=== PATIENT | male | born 1955 | race Hispanic/Latino ===

== ENCOUNTER 2018-12-18 05:39 | Observation (INO) | payer OTHER ==
[2018-12-15 10:57] VITALS: BP 130/67
[2018-12-15 11:20] LABS: BASOPHILS % (AUTO) 0.8 % (0.0-5.0); EOSINOPHILS % (AUTO) 3.2 % (0.0-8.0); HEMATOCRIT 42.4 % (42-54); LYMPHOCYTES % (AUTO) 45.2 % (21.0-51.0); MEAN CORPUSCULAR HEMOGLOBIN 30.6 pg (27.0-33.0); MEAN CORPUSCULAR HGB CONC 34.1 g/dL (32.0-36.0); MEAN CORPUSCULAR VOLUME 89.8 fL (79-99); MONOCYTES % (AUTO) 8.8 % (3.0-13.0); NUCLEATED RED BLOOD CELLS 0.1 % (0.0-0.19); PLATELET COUNT (AUTO) 292 K/uL (130-400); RED BLOOD CELL COUNT(AUTO) 4.72 MIL/uL (4.50-6.20); RED CELL DISTRIBUTION WIDTH 14.1 % (11.0-15.5); WHITE BLOOD COUNT (AUTO) 8.7 K/uL (4.8-10.8)
[2018-12-15 11:27] LABS: CREATININE 0.9 mg/dL (0.5-1.5); POTASSIUM 4.5 mmol/L (3.5-5.1)
[2018-12-15 11:53] LABS: INR 0.93 (0.85-1.15); PARTIAL THROMBOPLASTIN TIME 28.9 SEC (26.3-35.5); PROTHROMBIN TIME 9.8 SEC (9.6-11.6)
[2018-12-15 12:08] LABS: APPEARANCE,URINE CLEAR (CLEAR); BILIRUBIN,URINE NEGATIVE (NEGATIVE); COLOR,URINE YELLOW (YELLOW); GLUCOSE, URINE (UA) NEGATIVE (NEGATIVE); KETONES,URINE NEGATIVE (NEGATIVE); LEUKOCYTE ESTERASE ,URINE NEGATIVE (NEGATIVE); NITRATE,URINE NEGATIVE (NEGATIVE); OCCULT BLOOD,URINE SMALL (NEGATIVE); PROTEIN,URINE NEGATIVE (NEGATIVE); UROBILINOGEN,URINE 0.2 mg/dL (0.2-1.0)
[2018-12-15 12:33] LABS: BACTERIA,URINE Rare /HPF (None Seen); RBC,URINE 0-1 /HPF (0-1); SQUAMOUS EPITHELIAL CELL,UR Rare /HPF (0-2); WBC,URINE None Seen /HPF (0-1)
[~2018-12-18] VITALS: Ht 165.1 cm; Wt 73.9 kg
[2018-12-18] VITALS (14 sets, daily range): BP systolic 114–148; BP diastolic 57–85
[~2018-12-18 05:39] MED LIST: ASPI-555 PO; CLOP75TA32 PO; FINA5TAB41 PO; ISOS30TA6 PO; METO25TA6 PO; NITR0.4T50 SL
[2018-12-18] MEDS ORDERED: SODIUM CHLORIDE 0.9% 1000ML 1,000 ML IV ONE (07:16)
[2018-12-18] MEDS ORDERED: LIDOCAINE HCL 2% 20ML ONE (08:11)
[2018-12-18] MEDS ORDERED: IOHEXOL 350 MG/ML 100ML INFUS..BTL IV ONE (08:11)
[2018-12-18] MEDS ORDERED: IOHEXOL-350 50ML VIAL IV ONE (08:11)
[2018-12-18] MEDS ORDERED: HEPARIN SODIUM 1000UNIT/ML 10ML VIAL ONE (08:58)
[2018-12-18] MEDS ORDERED: CLOPIDOGREL BISULFATE 75 MG TAB ONE (09:01)
[2018-12-18] MEDS ORDERED: ASPIRIN 81MG TAB.CHEW ONE (09:01)
[2018-12-18] MEDS ORDERED: IOHEXOL-350 75 ML VIAL IV ONE (09:02)
[2018-12-18] MEDS ORDERED: NITROGLYCERIN 5 MG/ML 10 ML VIAL IV ONE (09:23)
[2018-12-18] MEDS ORDERED: NITROGLYCERIN 0.4 MG SL TAB SL SCH (10:00)
[2018-12-18] MEDS: METOPROLOL TARTRATE 25 MG TAB PO SCH (20:45)
[2018-12-18] MEDS ORDERED: FINASTERIDE 5 MG TABLET PO SCH (21:00)
[2018-12-18] MEDS ORDERED: CLOPIDOGREL BISULFATE 75 MG TAB PO SCH (21:00)
[2018-12-18] MEDS ORDERED: ASPIRIN 81MG TAB.CHEW PO SCH (21:00)
[2018-12-19 03:42] VITALS: BP 129/70
[2018-12-19] MEDS ORDERED: ATOR40TA71 PO (07:22)
[2018-12-19 07:44] VITALS: BP 146/75
[2018-12-19] MEDS: METOPROLOL TARTRATE 25 MG TAB PO SCH (09:00)
[2018-12-19 11:53] VITALS: BP 129/67
== END 2018-12-19 13:30 | disposition home or self-care (01) ==
LOC: DAH 05:39 → DAHIP 05:40 → DAH 05:40 → 2DH 14:49
PROVIDERS: ADMIT Internal Medicine Cardiovascular Disease; ATTEND Internal Medicine Cardiovascular Disease
DX: I24.9 Acute ischemic heart disease, unspecified (principal); I25.10 Atherosclerotic heart disease of native coronary artery without angina pectoris; E78.5 Hyperlipidemia, unspecified; I10 Essential (primary) hypertension; Z95.5 Presence of coronary angioplasty implant and graft; Z79.899 Other long term (current) drug therapy; Z82.49 Family history of ischemic heart disease and other diseases of the circulatory system; Z79.01 Long term (current) use of anticoagulants
CPT/HCPCS: 36415 ×2; 71045; 80048; 81001; 82948; 85025; 85347; 85610; 85730; 93005; 93458; A4606; C1725; C1760; C1769 ×2; C1874; C1887; C1894; C9600; G0378 ×32; J1644 ×2; J3490; J7030; Q9965; Q9967 ×3